=== PATIENT | male | born 2005 ===

== ENCOUNTER 2025-03-05 20:29 | Emergency (ER) | payer OTHER ==
[2025-03-05] MEDS ORDERED: Sodium Chloride 0.9% 10 ML Syringe FLUSH PRN (20:44)
[2025-03-05] MEDS: Ondansetron 4 MG/2 ML SDV IVPUSH ONE (21:10)
[2025-03-05] MEDS: Ketorolac 30 MG/ML SDV IVPUSH ONE (21:13)
[2025-03-05] MEDS: Dexamethasone 4 MG/ML SDV PO ONE (21:20)
[2025-03-05] MEDS: Take Home: Benzonatate 100 MG, 6 Cap Pack PO ONE (21:48)
== END 2025-03-05 22:21 | disposition home or self-care (01) ==
LOC: CC.ED 20:29
DX: J40 Bronchitis, not specified as acute or chronic (principal); F17.200 Nicotine dependence, unspecified, uncomplicated; Z79.899 Other long term (current) drug therapy
CPT/HCPCS: 94640; 96374; 96375; 99283; 99284-25; A9270-GY; J1100; J1885; J2405; J7030